=== PATIENT | male | born 1995 | race African-American/Black ===

== ENCOUNTER 2019-03-21 16:58 | Emergency (ER) | payer MEDICAID, SELFPAY ==
[2019-03-21] MEDS ORDERED: Adacel (T-DAP) 0.5 ML SYRINGE ONE (18:00)
--- NOTE | 2019-03-21 18:12 | RAD ---
XR Ankle Rt 3 View STANDARD: 03/21/2019 5:52 PM CLINICAL INDICATION: Injury COMPARISON: 07/03/2015 FINDINGS: Fracture:No acute fracture. Chronic appearing heterotopic density is present adjacent the fibular tip. Arthropathy:None of significance. Small dorsal calcaneal enthesophyte. IMPRESSION: 1. No acute osseous abnormality.
[2019-03-21] MEDS ORDERED: Rabies Vaccine Human 2.5 UNITS VIAL IM ONE (18:15)
[2019-03-21] MEDS ORDERED: Bacitracin 1 PK ONE (19:34)
== END 2019-03-21 19:50 | disposition home or self-care (01) ==
LOC: ERS 16:58
DX: S91.051A Open bite, right ankle, initial encounter (principal); S91.351A Open bite, right foot, initial encounter; W54.0XXA Bitten by dog, initial encounter
CPT/HCPCS: 90376; 90471; 90472; 90675; 90715; 96372

== ENCOUNTER → 2019-03-24 | Emergency (ER) | payer SELFPAY ==
[~2019-03-24] MED LIST: Rabies Vaccine Human 2.5 UNITS VIAL IM ONE
== END ==
LOC: ER/OP 11:11
DX: Z29.14 Encounter for prophylactic rabies immune globulin (principal)
CPT/HCPCS: 90471; 90675

== ENCOUNTER → 2019-03-28 | Day surgery (SDC) | payer SELFPAY | LOC: ER/OP 14:58 | PROVIDERS: ATTEND Emergency Medicine | DX: Z29.14 Encounter for prophylactic rabies immune globulin (principal); J45.909 Unspecified asthma, uncomplicated; Z88.0 Allergy status to penicillin | CPT/HCPCS: 90675 ==

== ENCOUNTER → 2019-04-05 | Day surgery (SDC) | payer SELFPAY | LOC: ER/OP 11:52 | DX: Z29.14 Encounter for prophylactic rabies immune globulin (principal) | CPT/HCPCS: 90675 ==

== ENCOUNTER 2022-01-13 16:21 | Emergency (ER) | payer SELFPAY ==
[~2022-01-13 16:21] MED LIST changes: +Iopamidol-370 76% 500 ML 1 ML ONE; -Rabies Vaccine Human 2.5 UNITS VIAL IM ONE
[2022-01-13 16:51] LABS: #Eosinphils 0.2 thou/uL (0.0-0.7); #Lymphocytes 2.2 thou/uL (1.20-3.40); #Monocytes 0.3 thou/uL (0.11-0.59); #Neutrophils 3.1 thou/uL (1.40-6.50); %Basophils 0.2 % (0.0-1.0); %Eosinophils 3.6 % (0.0-10.0); %Lymphocytes 37.8 % (21.0-51.0); %Monocytes 5.4 % (0.0-10.0); %Neutrophils 52.9 % (42.0-75.0); Hemoglobin 14.7 g/dL (14.0-18.0); Mean Corpuscular HGB CONC 32.6 g/dL (32.0-36.0); Mean Corpuscular Hemoglobin 32.1 pg (27.0-31.0); Mean Corpuscular Volume 98.3 fL (78.0-98.0); Mean Platelet Volume 7.3 fL (7.4-10.4); Platelet Count 176 thou/uL (130-400); RBC Distribution Width 12.3 % (11.5-14.5); Red Blood Cell (RBC) Count 4.57 mill/uL (4.70-6.10); White Blood Cell (WBC) Count 5.9 thou/uL (4.8-10.8)
[2022-01-13 17:26] LABS: ALT (SGPT) 18 U/L (8-55); AST (SGOT) 22 U/L (5-34); Albumin 4.4 g/dL (3.5-5.0); Alkaline Phosphatase 48 U/L (40-110); Anion Gap 13 mmol/L (10-20); BUN (Urea Nitrogen) 10 mg/dL (8.9-20.6); Bilirubin, Total 0.7 mg/dL (0.2-1.2); Calc. Creatinine Clearance 0 mL/min (70-130); Calcium 9.7 mg/dL (7.8-10.44); Carbon Dioxide 27 mmol/L (22-29); Chloride 102 mmol/L (98-107); Estimated GFR 88; Globulin 3.1 g/dL (2.4-3.5); Glucose 97 mg/dL (70-105); Lipase 17 U/L (8-78); Potassium 4.4 mmol/L (3.5-5.1); Protein, Total 7.5 g/dL (6.0-8.3); Sodium 138 mmol/L (136-145)
[2022-01-13] MEDS ORDERED: Morphine 4 MG/ML VIAL ONE (19:22)
[2022-01-13 21:48] LABS: Bilirubin Negative (Negative); Blood, Urine Negative (Negative); Clarity Clear (Clear); Glucose, Urine (Dipstick) Normal (Negative); Ketone, Urine Negative (Negative); Leukocyte Negative Leu/uL (Negative); Nitrite Negative (Negative); Protein, Urine (Dipstick) Negative (Neg-Trace); Specific Gravity, Urine Greater than 1.060 (1.002-1.036); Urobilinogen Normal mg/dL (Less than 2)
== END 2022-01-13 23:20 | disposition home or self-care (01) ==
LOC: ERS 16:21
DX: K42.9 Umbilical hernia without obstruction or gangrene (principal)
CPT/HCPCS: 36415; 74177; 80053; 81003; 83690; 85025; 96374; J2270; Q9967

== ENCOUNTER 2022-06-29 08:48 | Emergency (ER) | payer SELFPAY ==
[2022-06-29] MEDS ORDERED: Lidocaine Viscous Sol 2% 15 ml UD Cup ONE (10:11)
[2022-06-29] MEDS ORDERED: Mag-Al 1200 mg/1200 mg/30 ML UDCUP ONE (10:11)
[2022-06-29] MEDS ORDERED: Ondansetron ODT 8 MG TAB ONE (10:11)
== END 2022-06-29 11:31 | disposition home or self-care (01) ==
LOC: ERS 08:48
DX: R11.2 Nausea with vomiting, unspecified (principal)
CPT/HCPCS: 99283; Q0162

== ENCOUNTER 2023-06-17 08:15 | Emergency (ER) | payer SELFPAY ==
[2023-06-17] MEDS ORDERED: Ondansetron ODT 4 MG TAB ONE (08:40)
[2023-06-17 10:29] LABS: SARS-CoV-2 NAA Rapid Test Not Detected (NotDetected)
== END 2023-06-17 09:12 | disposition home or self-care (01) ==
LOC: ERS 08:15
DX: B34.9 Viral infection, unspecified (principal); F17.290 Nicotine dependence, other tobacco product, uncomplicated
CPT/HCPCS: 71045; Q0162